=== PATIENT | female | born 1995 | race Caucasian/White ===

== ENCOUNTER 2017-07-30 10:50 | Emergency (ER) | payer OTHER ==
[2017-07-30] MEDS ORDERED: Ketorolac Tromethamine 60 MG/2 ML VIAL ONE (13:52)
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
== END 2017-07-30 14:15 | disposition home or self-care (01) ==
LOC: ERS 10:50
DX: S00.33XA Contusion of nose, initial encounter (principal); K58.9 Irritable bowel syndrome, unspecified; F31.9 Bipolar disorder, unspecified; Z87.891 Personal history of nicotine dependence; Z79.899 Other long term (current) drug therapy; V47.0XXA Car driver injured in collision with fixed or stationary object in nontraffic accident, initial encounter; Y92.481 Parking lot as the place of occurrence of the external cause
CPT/HCPCS: 70450; 70486; 81025; 96372; J1885